=== PATIENT | male | born 1985 | race Caucasian/White ===

== ENCOUNTER 2016-09-11 18:31 | Emergency (ER) | payer MEDICAID ==
[~2016-09-11] VITALS: Ht 175.3 cm; Wt 96.4 kg
[2016-09-11 18:33] VITALS: BP 132/88; PULSE 95; RESP 22; TEMP 98.7; O2SAT 95
--- NOTE | 2016-09-11 18:44 | PD ---
Physical Exam Date Seen by Provider: Sep 11, 2016 Time Seen by Provider: 18:40 Narrative 31 y/o male presents with 3 days of Left sided facial pain, swelling and rash. Patient was seen at [facility] yesterday and given bactrim and Tylenol for "Spider bites". Symptoms worsening today. Patient denies visual pain or eye pain. Pain is from his ear to his forehead and left jaw. Denies sores in mouth or sore throat. No Fever. No difficulty swallowing. V/S Stable. Waiting for Med Bed. Data Data Last Documented VS Vital Signs Date Time Temp Pulse Resp B/P Pulse Ox O2 Delivery O2 Flow Rate FiO2 09/11/16 18:33 98.7 95 22 132/88 95 Room Air [facility] Medical Record Reviewed: Yes Supervised Visit with TAYLOR: Yes Scripts No Active Prescriptions or Reported Meds Condition: Stable Larry Swanson Sep 11, 2016 18:44
[2016-09-11] MEDS ORDERED: NAPR500 PO (18:51)
[2016-09-11] MEDS ORDERED: BACT800T5 PO (18:51)
--- NOTE | 2016-09-11 19:29 | PD ---
HPI Chief Complaint: Edema Time Seen by Provider: 19:23 Travel History International Travel<30 days: No Contact w/Intl Traveler<30days: No Traveled to known affect area: No History of Present Illness HPI 31-year-old male presents to emergency Department with 3 day history of left-sided facial pain with subsequent rash, erythema, along the left upper cheek, left lower anterior jaw, and in the ear. Patient states he was seen at [facility] yesterday and was thought to have insect bites with infection. He was given Bactrim and Tylenol for pain. Patient states the symptoms have worsened today. Patient states his pain started the rash showed up 2 days ago. He has no fever, chills, or eye pain. He has no visual changes. The pain seems to be consistent on the left trigeminal nerve. He has no rash on the nose. Patient has no sores in his mouth or sore throat. He has no difficulty swallowing. He does not some increased lymph nodes on the left anterior neck. He has no known drug allergies. PFSH Past Medical History Blood Disorders: No Cancer: No Cardiovascular Problems: No Chemotherapy: No Endocrine: No Gastrointestinal Disorders: Yes (H.PYLORI) GERD: Yes Genitourinary: No Immune Disorder: No Musculoskeletal: No Neurologic: No Psychiatric: Yes (PTSD) Respiratory: Yes (HX OF TB) Radiation Therapy: No Tetanus Vaccination: > 5 Years Past Surgical History AICD: No Joint Replacement: No Pacemaker: No Other Surgery: Yes (PYLONIDAL CYST; L EAR; LYNX DEVICE) Social History Alcohol Use: Yes (RARELY) Tobacco Use: Yes (1/2 PPD) Substance Use: No Allergies-Medications (Allergen,Severity, Reaction): Coded Allergies: No Known Allergies (Verified , 09/11/16) Reported Meds & Prescriptions Reported Meds & Active Scripts Active Reported Naprosyn (Naproxen) 500 Mg Tab 500 Mg PO BID Bactrim DS (Sulfamethoxazole-Trimethoprim) 800-160 Mg Tab 1 Tab PO BID Review of Systems Except as stated in HPI: all other systems reviewed are Neg General / Constitutional: No: Fever Eyes: No: Visual changes HENT: No: Headaches Cardiovascular: No: Chest Pain or Discomfort Respiratory: No: Shortness of Breath Gastrointestinal: No: Abdominal Pain Genitourinary: No: Dysuria Musculoskeletal: Positive: Pain (see history present illness.) Skin: Positive Rash Neurologic: No: Weakness Psychiatric: No: Depression Endocrine: No: Polydipsia Hematologic/Lymphatic: No: Easy Bruising Physical Exam Narrative GENERAL: Patient appears in mild distress. SKIN: Warm and dry. Patient has vesicular rash to the left upper lateral cheek , left lower anterior jaw, and ice couple of vesicles in the inner ear. HEAD: Atraumatic. Normocephalic. EYES: Pupils equal and round. No scleral icterus. No injection or drainage. The left eye appears normal. With no tearing or pain. No injection. ENT: No nasal bleeding or discharge. Mucous membranes pink and moist. Pharynx is normal. Airway is patent. No significant lymphadenitis. NECK: Trachea midline. No JVD. Neck is supple nontender. CARDIOVASCULAR: Regular rate and rhythm. No murmurs gallops or rubs. RESPIRATORY: No accessory muscle use. Clear to auscultation. Breath sounds equal bilaterally. GASTROINTESTINAL: Abdomen soft, non-tender, nondistended. Hepatic and splenic margins not palpable. MUSCULOSKELETAL: Extremities without clubbing, cyanosis, or edema. No obvious deformities. NEUROLOGICAL: Awake and alert. No obvious cranial nerve deficits. Motor grossly within normal limits. Five out of 5 muscle strength in the arms and legs. Normal speech. PSYCHIATRIC: Appropriate mood and affect; insight and judgment normal. Data Data Last Documented VS Vital Signs Date Time Temp Pulse Resp B/P Pulse Ox O2 Delivery O2 Flow Rate FiO2 09/11/16 18:33 98.7 95 22 132/88 95 Room Air MDM Medical Decision Making Medical Screen Exam Complete: Yes Emergency Medical Condition: Yes Differential Diagnosis Cellulitis. Insect bites. Herpes zoster. Narrative Course Patient is felt to have shingles without eye involvement. Patient was treated with Valtrex 1000 milligrams by mouth 3 times a day 7 days. Patient also started on gabapentin 100 mg 3 times a day #30. Patient is given tramadol 50 no areas one every 6 hours when necessary pain. # 20. [facility]. Patient should return immediately with any eye pain or drainage as discussed. Diagnosis Primary Impression: Shingles outbreak Qualified Code: B02.9 - Herpes zoster without complication Referrals: [facility] Patient Instructions: General Instructions, Shingles (ED) Additional Instructions: Patient is felt to have shingles without eye involvement. Patient was treated with Valtrex 1000 milligrams by mouth 3 times a day 7 days. Patient also started on gabapentin 100 mg 3 times a day #30. Patient is given tramadol 50 no areas one every 6 hours when necessary pain. # 20. [facility] to ensure [facility]. Patient should return immediately with any eye pain or drainage as discussed. Disposition: 01 DISCHARGE HOME Condition: Stable Larry Swanson Sep 11, 2016 19:29
[2016-09-11] MEDS ORDERED: GABA100C4 PO (19:30)
[2016-09-11] MEDS ORDERED: VALT1TAB PO (19:30)
[2016-09-11] MEDS ORDERED: TRAM50TA PO (19:30)
== END 2016-09-11 20:00 | disposition home or self-care (01) ==
LOC: NEPK 18:31
DX: B02.9 Zoster without complications (principal); F17.210 Nicotine dependence, cigarettes, uncomplicated
CPT/HCPCS: 99283